=== PATIENT | male | born 1980 | race African-American/Black ===

== ENCOUNTER 2018-02-15 02:24 | Emergency (ER) | payer MEDICAID ==
[2018-02-15] MEDS: DIPHTH/TET/ACEL PERTUSS (ADULT) 0.5 ML VIAL IM* (03:16)
== END 2018-02-15 03:46 | disposition home or self-care (01) ==
LOC: FTE 02:24
DX: S81.831A Puncture wound without foreign body, right lower leg, initial encounter (principal); S81.832A Puncture wound without foreign body, left lower leg, initial encounter; F17.210 Nicotine dependence, cigarettes, uncomplicated; W54.0XXA Bitten by dog, initial encounter; Y92.9 Unspecified place or not applicable; Z23 Encounter for immunization
CPT/HCPCS: 90471; 90715; 99283-25